=== PATIENT | female | born 1970 | race Caucasian/White ===

== ENCOUNTER 2017-05-04 09:19 | Emergency (ER) | payer BC, OTHER ==
[2017-05-04] MEDS ORDERED: Ketorolac 60 MG/2 ML SDV IM ONE (10:24)
--- NOTE | 2017-05-04 10:24 | EDM.PDOC ---
ED HPI GENERAL MEDICAL PROBLEM - General Chief Complaint: Back Pain or Injury Stated Complaint: RIDE SIDE LOWER BACK PAIN Time Seen by Provider: 05/04/17 09:50 - History of Present Illness INITIAL COMMENTS - FREE TEXT/NARRATIVE: HISTORY AND PHYSICAL: History of present illness: Patient 46-year-old female presents status post fall which injured her right lower back on Friday she denies other trauma or concern she slipped on the ice. She did not hit her head or neck she denies any other complaints. There's been no numbness no weakness no incontinence or retention bowel or bladder Review of systems: As per history of present illness and below otherwise all systems reviewed and negative. Past medical history: As per history of present illness and as reviewed below otherwise noncontributory. Surgical history: As per history of present illness and as reviewed below otherwise noncontributory. Social history: No reported history of drug or alcohol abuse. Family history: As per history of present illness and as reviewed below otherwise noncontributory. Physical exam: HEENT: Atraumatic, normocephalic, pupils reactive, negative for conjunctival pallor or scleral icterus, mucous membranes moist, throat clear, neck supple, nontender, trachea midline. Lungs: Clear to auscultation, breath sounds equal bilaterally, chest nontender. Heart: S1S2, regular, negative for clicks, rubs, or JVD. Abdomen: Soft, nondistended, nontender. Negative for masses or hepatosplenomegaly. Negative for costovertebral tenderness. Pelvis: Stable nontender. Genitourinary: Deferred. Rectal: Deferred. Extremities: Atraumatic, negative for cords or calf pain. Neurovascular unremarkable. Neuro: Awake, alert, oriented. Cranial nerves II through XII unremarkable. Cerebellum unremarkable. Motor and sensory unremarkable throughout. Exam nonfocal. Back: Patient is some tenderness in the paravertebral region of her lower lumbar spine she is able stand on her toes back on her heels deep tendon reflexes motor and sensory are normal Diagnostics: X-ray lumbosacral spine Therapeutics: Toradol 60 mg IM Impression: #1 low back pain #2 history of fall #3 lumbosacral contusion/strain Definitive disposition and diagnosis as appropriate pending reevaluation and review of above. Right Lower Back Pain Score (Numeric/FACES): 2 - Related Data Allergies Allergy/AdvReac Type Severity Reaction Status Date / Time No Known Allergies Allergy Verified 05/04/17 09:35 Home Meds: Home Meds ALPRAZolam [ALPRAZolam] 2 mg PO ASDIRECTED PRN 05/04/17 [History] Past Medical History Psychiatric History: Reports: Anxiety Social & Family History - Family History Family Medical History: Noncontributory - Tobacco Use Smoking Status *Q: Never Smoker - Caffeine Use Caffeine Use: Reports: Coffee, Energy Drinks - Recreational Drug Use Recreational Drug Use: No ED ROS GENERAL - Review of Systems Review Of Systems: ROS reveals no pertinent complaints other than HPI. ED EXAM, GENERAL - Physical Exam Exam: See Below (See dictation) Course - Vital Signs Last Recorded V/S: Last Vital Signs Temp 36.5 C 05/04/17 09:33 Pulse 78 05/04/17 09:33 Resp 18 05/04/17 09:33 BP 130/79 05/04/17 09:33 Pulse Ox 98 05/04/17 09:33 - Orders/Labs/Meds Orders: Active Orders 24 hr Category Date Time Status Lumbar Spine 2 or 3V [CR] Stat Exams 05/04/17 09:49 Taken Meds: Medications Discontinued Medications Generic Name Dose Route Start Last Admin Trade Name Freq PRN Reason Stop Dose Admin Ketorolac Tromethamine 60 mg 05/04/17 10:24 05/04/17 10:30 Toradol IM 05/04/17 10:25 60 mg ONETIME ONE Administration Departure - Departure Time of Disposition: 11:03 Disposition: Home, Self-Care 01 Condition: Good (Lumbar fracture) Clinical Impression: Lumbar vertebral fracture - Discharge Information Referrals: PCP,None [Primary Care Provider] - Forms: ED Department Discharge Additional Instructions: The following information is given to patients seen in the emergency department who are being discharged to home. This information is to outline your options for follow-up care. We provide all patients seen in our emergency department with a follow-up referral. The need for follow-up, as well as the timing and circumstances, are variable depending upon the specifics of your emergency department visit. If you don't have a primary care physician on staff, we will provide you with a referral. We always advise you to contact your personal physician following an emergency department visit to inform them of the circumstance of the visit and for follow-up with them and/or the need for any referrals to a consulting specialist. The emergency department will also refer you to a specialist when appropriate. This referral assures that you have the opportunity for followup care with a specialist. All of these measure are taken in an effort to provide you with optimal care, which includes your followup. Under all circumstances we always encourage you to contact your private physician who remains a resource for coordinating your care. When calling for followup care, please make the office aware that this follow-up is from your recent emergency room visit. If for any reason you are refused follow-up, please contact the [facility] emergency department at and asked to speak to the emergency department charge nurse. [facility] [address], [address] [place] [address] Hydrocodone as prescribed follow-up primary medical doctor in orthopedic clinic above called to schedule appointment return as needed as discussed - My Orders Last 24 Hours: My Active Orders 05/04/17 09:49 Lumbar Spine 2 or 3V [CR] Stat - Assessment/Plan Last 24 Hours: My Active Orders 05/04/17 09:49 Lumbar Spine 2 or 3V [CR] Stat
--- NOTE | 2017-05-05 18:45 | CR ---
EXAM DATE: 05/04/17 PATIENT'S AGE: 46 Patient: KARSTEN HARO Facility: [place], [place] Site . Site : 1970 Study: XRay Spine Lumbar [id number] 10:21:51 AM Ordering Physician: Jhony Holbrook Final Report: INDICATION: Fall. Low back pain. TECHNIQUE: Lumbar spine 3 view. COMPARISON: None FINDINGS: There are 5 lumbar type vertebral bodies. Alignment is normal. Acute fracture of the anterior superior corner endplate of L4. No other fracture identified. Intervertebral disc space height is preserved. No significant facet joint degenerative changes. There are pelvic phleboliths. IMPRESSION: Acute fracture of the anterior superior corner endplate of L4. Dictated by Qamar Lopez MD @ May 04 2017 10:26AM (Electronic Signature) Report Signed by Proxy. LUIZ
== END 2017-05-04 11:14 | disposition home or self-care (01) ==
LOC: MW.ED 09:19
DX: S32.049A Unspecified fracture of fourth lumbar vertebra, initial encounter for closed fracture (principal); W19.XXXA Unspecified fall, initial encounter
CPT/HCPCS: 72100; 96372; 99283; J1885

== ENCOUNTER 2022-02-02 17:50 | Emergency (ER) | payer BC, MEDICAID ==
[2022-02-02 21:23] LABS: CORONAVIRUS COVID-19 NAA NEGATIVE (NEGATIVE); INFLUENZA A NAA NEGATIVE (NEGATIVE); INFLUENZA B NAA NEGATIVE (NEGATIVE)
== END 2022-02-02 22:38 | disposition home or self-care (01) ==
LOC: MW.ED 17:50
DX: R07.89 Other chest pain (principal); Z20.822 Contact with and (suspected) exposure to COVID-19
CPT/HCPCS: 0240U; 36415; 71045; 80053; 84484; 85025; 85379; 99285; 99283

== ENCOUNTER 2022-05-14 05:44 | Emergency (ER) | payer BC ==
[2022-05-14] MEDS ORDERED: Ketorolac 30 MG/ML SDV IVPUSH ONE (06:03)
[2022-05-14] MEDS ORDERED: Lactated Ringers 1,000 ML IV STA (06:03)
[2022-05-14] MEDS ORDERED: VANCOmycin 1.25 GM/250 ML 250 ML IV ONE (06:30)
[2022-05-14] MEDS ORDERED: Vancomycin 1.25 GM SDV ONE (06:32)
[2022-05-14] MEDS ORDERED: Sodium Chloride 0.9% 250 ML ONE (06:33)
[2022-05-14 07:02] LABS: POTASSIUM,K 3.7 mmol/L (3.5-5.1)
== END 2022-05-14 08:08 | disposition home or self-care (01) ==
LOC: MW.ED 05:44
DX: L03.116 Cellulitis of left lower limb (principal); Z72.0 Tobacco use
CPT/HCPCS: 36415; 80053; 83605; 85025; 85610; 87040; 96365; 96375; 99283; J1885; J3370; J7120

== ENCOUNTER 2022-10-27 22:16 | Emergency (ER) | payer BC, MEDICAID ==
[2022-10-27] MEDS ORDERED: Acetaminophen 325 MG Tab PO ONE (22:52)
[2022-10-27] MEDS ORDERED: Ketorolac 30 MG/ML SDV IVPUSH ONE (22:52)
[2022-10-27] MEDS ORDERED: Lactated Ringers 1,000 ML IV SCH (23:00)
[2022-10-27 23:07] LABS: BASOPHILS PERCENT AUTO 0.2 % (0.0-1.5); EOSINOPHILS PERCENT AUTO 0.1 % (0.0-7.0); HEMATOCRIT 41.7 % (36.0-46.0); HEMOGLOBIN 13.9 g/dL (12.0-16.0); LYMPHOCYTES ABSOLUTE AUTO 0.8 K/uL (0.6-2.4); LYMPHOCYTES PERCENT AUTO 6.3 % (16.0-40.0); MEAN CORPUSCULAR HEMOGLOBIN 30.9 pg (27.0-32.0); MEAN CORPUSCULAR HGB CONC 33.3 g/dL (31.0-37.0); MEAN CORPUSCULAR VOLUME 92.7 fL (80.0-98.0); MONOCYTES ABSOLUTE AUTO 1.9 K/uL (0.0-0.8); MONOCYTES PERCENT AUTO 14.6 % (0.0-15.0); NEUTROPHILS ABSOLUTE AUTO 10.2 K/uL (1.4-5.7); NEUTROPHILS PERCENT AUTO 78.8 % (48.0-80.0); NRBC ABSOLUTE 0 K/uL; PLATELET COUNT,PLT 282 K/uL (150-400); WHITE BLOOD CELL COUNT,WBC 12.98 K/uL (4.0-11.0)
[2022-10-27 23:32] LABS: A/G RATIO 0.8 (0.9-1.6); ALBUMIN 3.1 g/dL (3.4-5.0); BILIRUBIN TOTAL 0.4 mg/dL (0.2-1.0); CALCIUM 8.9 mg/dL (8.5-10.1); CARBON DIOXIDE,CO2 28.8 mmol/L (21.0-32.0); CREATININE 0.9 mg/dL (0.6-1.0); EST CRCL DRUG DOSING (CG) 67.29 mL/min; POTASSIUM,K 3.9 mmol/L (3.5-5.1); PROTEIN TOTAL,TP 6.8 g/dL (6.4-8.2)
[2022-10-27 23:34] LABS: LACTIC ACID 1.4 mmol/L (0.4-2.0)
[2022-10-28 00:20] LABS: BILIRUBIN,URINE NEGATIVE (NEGATIVE); COLOR,URINE YELLOW; GLUCOSE,URINE NEGATIVE (NEGATIVE); KETONES,URINE NEGATIVE (NEGATIVE); LEUKOCYTE ESTERASE,URINE LARGE (NEGATIVE); NITRITE,URINE POSITIVE (NEGATIVE); OCCULT BLOOD,URINE MODERATE (NEGATIVE); PROTEIN,URINE NEGATIVE (NEGATIVE); UROBILINOGEN,URINE 0.2 EU/dL (<2.0)
[2022-10-28 00:27] LABS: APPEARANCE,URINE CLOUDY
[2022-10-28 00:29] LABS: AMORPHOUS SEDIMENT,URINE MANY (NEGATIVE); BACTERIA,URINE 4+ (NEGATIVE); EPITHELIAL CELLS,URINE MODERATE (NONE-FEW); RBC,URINE 0-2 (0-2/HPF); WBC,URINE TO NUMEROUS TO COUNT (0-5/HPF)
[2022-10-28] MEDS ORDERED: cefTRIAXone 1 GM in Sodium Chloride 0.9% 50 ML IV ONE ×2 (00:33→02:58)
[2022-10-28] MEDS ORDERED: Iopamidol 755 MG/ML 500 ML Multipack Bottle IVPUSH ONE (01:27)
== END 2022-10-28 05:10 ==
LOC: MW.ED 22:16
DX: N13.2 Hydronephrosis with renal and ureteral calculous obstruction (principal); Z86.16 Personal history of COVID-19; Z20.822 Contact with and (suspected) exposure to COVID-19
CPT/HCPCS: 36415; 71045; 74177; 80053; 81001; 83605; 83690; 84703; 85025; 87040; 87086; 87635; 93005; 96365; 96366; 96375; 99285; A9270; J0696; J1885; J3490; J7120; Q9967; 87088; 87186; 93010; U0002

== ENCOUNTER 2022-10-29 14:24 | Emergency (ER) | payer MEDICAID ==
[2022-10-29] MEDS ORDERED: Sodium Chloride 0.9% 10 ML Syringe FLUSH PRN (14:59)
[2022-10-29] MEDS ORDERED: Sodium Chloride 0.9% 2.5 ML Syringe FLUSH PRN (14:59)
[2022-10-29 15:39] LABS: BASOPHILS PERCENT AUTO 0.2 % (0.0-1.5); EOSINOPHILS ABSOLUTE AUTO 0.1 K/uL (0.0-0.7); EOSINOPHILS PERCENT AUTO 0.6 % (0.0-7.0); HEMATOCRIT 40.2 % (36.0-46.0); HEMOGLOBIN 13.5 g/dL (12.0-16.0); LYMPHOCYTES ABSOLUTE AUTO 1.6 K/uL (0.6-2.4); LYMPHOCYTES PERCENT AUTO 12.4 % (16.0-40.0); MEAN CORPUSCULAR HEMOGLOBIN 31.3 pg (27.0-32.0); MEAN CORPUSCULAR HGB CONC 33.6 g/dL (31.0-37.0); MEAN CORPUSCULAR VOLUME 93.1 fL (80.0-98.0); MONOCYTES ABSOLUTE AUTO 1.2 K/uL (0.0-0.8); MONOCYTES PERCENT AUTO 9.4 % (0.0-15.0); NEUTROPHILS ABSOLUTE AUTO 9.7 K/uL (1.4-5.7); NEUTROPHILS PERCENT AUTO 77.4 % (48.0-80.0); NRBC ABSOLUTE 0 K/uL; PLATELET COUNT,PLT 369 K/uL (150-400); RED BLOOD CELL COUNT 4.32 M/uL (4.30-5.90)
[2022-10-29 16:16] LABS: LACTIC ACID 0.8 mmol/L (0.4-2.0)
[2022-10-29 16:25] LABS: A/G RATIO 0.7 (0.9-1.6); BILIRUBIN TOTAL 0.2 mg/dL (0.2-1.0); CALCIUM 9.2 mg/dL (8.5-10.1); CARBON DIOXIDE,CO2 29.4 mmol/L (21.0-32.0); CREATININE 0.7 mg/dL (0.6-1.0); EST CRCL DRUG DOSING (CG) 86.52 mL/min; POTASSIUM,K 4.5 mmol/L (3.5-5.1); PROTEIN TOTAL,TP 7.5 g/dL (6.4-8.2)
== END 2022-10-29 15:48 | disposition left against medical advice (07) ==
LOC: MW.ED 14:24
DX: N20.0 Calculus of kidney (principal); N12 Tubulo-interstitial nephritis, not specified as acute or chronic; Z96.0 Presence of urogenital implants; Z91.148 Patient's other noncompliance with medication regimen for other reason; Z86.16 Personal history of COVID-19
CPT/HCPCS: 36415; 80053; 83605; 85025; 99283; 99284